=== PATIENT | female | born 1970 | race Caucasian/White ===

== ENCOUNTER 2016-10-28 03:42 | Inpatient (IN) | payer BC, MEDICARE ==
[2016-10-28] VITALS (16 sets, daily range): BP systolic 89–145; BP diastolic 55–73; PULSE 53–74; RESP 16–20; TEMP 97.7–98.5; O2SAT 92–100
[~2016-10-28] VITALS: Ht 167.6 cm; Wt 73.9 kg
[2016-10-28] MEDS ORDERED: HEPARIN SODIUM - IV 10,000 UNITS/10 ML VIAL ONE ×2 (03:48→04:59)
[2016-10-28] MEDS ORDERED: ASPIRIN 81 MG CHEW TAB ONE (03:48)
--- NOTE | 2016-10-28 03:57 | PD ---
HPI Chief Complaint: STEMI Alert Time Seen by Provider: 03:56 Travel History International Travel<30 days: No Contact w/Intl Traveler<30days: No Traveled to known affect area: No History of Present Illness HPI The patient is a 46 year old female who presents to the [facility] emergency department with a history of chest pain that awoke her from sound sleep at approximately 3 AM. The patient reports that she has never had a pain like this previously. She reports that the pain is a tightening sensation in the center of her chest. She reports that was worse with rolling on her left side and associated with left shoulder aching and numbness in bilateral upper extremities. The patient reports having associated diaphoresis and nausea with this. She denies having any vomiting. She reports that she's also had shortness of breath associated with the pain. She reports that it has been constant since onset. She reports that she took 2 baby aspirin prior to arrival. The patient was given 2 sublingual nitroglycerin prior to arrival by ambulance services. The patient the patient denies having any recent problems with acid reflux or heartburn. The patient was noted by ambulance services to have ST segment elevation in leads 2 and 3 and a cardiac alert was called prior to arrival. The patient agreed to this facility was noted to be bradycardic in the 50s, blood pressure systolic in the upper 80s. The patient denies having any prior history of diabetes, hypertension, or hyperlipidemia. She denies any prior history of heart disease. She denies having a primary care physician. The patient denies any recent history of fevers, cough, congestion, neck pain, abdominal pain, vomiting, diarrhea, urinary symptoms, or other neurologic symptoms. [facility] Past Medical History Narrative Medical The patient's past medical history is significant for epilepsy. Immunizations Current: Yes Seizures: Yes Tetanus Vaccination: Unknown Influenza Vaccination: No ?: Not Past Surgical History Narrative Surgical The patient's past surgical history is reportedly none. Surgical History: No Previous Surgery Social History Alcohol Use: Yes Tobacco Use: Yes Substance Use: No Allergies-Medications (Allergen,Severity, Reaction): Coded Allergies: No Known Allergies (Unverified , 10/28/16) Reported Meds & Prescriptions Reported Meds & Active Scripts Active No Active Prescriptions or Reported Medications Review of Systems Except as stated in HPI: all other systems reviewed are Neg General / Constitutional: No: Fever Eyes: No: Visual changes HENT: No: Headaches Cardiovascular: Positive: Chest Pain or Discomfort, Dyspnea on exertion Respiratory: Positive: Shortness of Breath Gastrointestinal: Positive: Nausea, No: Vomiting, Abdominal Pain, Indigestion , Loss of Appetite Genitourinary: No: Dysuria Musculoskeletal: No: Pain Skin: No Rash Neurologic: No: Weakness Psychiatric: No: Depression Endocrine: No: Polydipsia Hematologic/Lymphatic: No: Easy Bruising Physical Exam Narrative General: The patient is a well-developed well-nourished female, pale appearing on arrival , blood pressure systolic of 88, heart rate in the 40s. Head and Neck exam: Head is normocephalic atraumatic. Eyes: EOMI, pupils are equal round and reactive to light. Nose: Midline septum with pink mucous membranes Mouth: Dentition unremarkable. Moist mucus membranes. Posterior oropharynx is not erythematous. No tonsillar hypertrophy. Uvula midline. Airway patent. Neck: No palpable lymphadenopathy. No nuchal rigidity. No thyromegaly. Cardiovascular: Regular rate and rhythm without murmurs, gallops, or rubs. No pulse deficit to the extremities and simultaneous auscultation and palpation of her radial artery. Lungs: Clear to auscultation bilaterally. No wheezes, rhonchi, or rales. Abdomen: Soft, without tenderness to palpation in all 4 quadrants of the abdomen. No guarding, rebound, or rigidity. Normal bowel sounds are audible. No tenderness on palpation of McBurney's point. Negative Zheng's sign. Extremities: No clubbing, cyanosis, or edema. 2+ pulses in all 4 extremities. No calf tenderness on palpation. Back: No spinous process tenderness to palpation. No costovertebral angle tenderness to palpation. Neurologic Exam: Grossly nonfocal. Skin Exam: No rash noted. Intact skin that is warm and dry. Data Data Last Documented VS Vital Signs Date Time Temp Pulse Resp B/P Pulse Ox O2 Delivery O2 Flow Rate FiO2 10/28/16 04:34 53 20 145/73 96 Nasal Cannula 2 10/28/16 03:57 98.0 Orders Heparin Inj (Heparin Inj) (10/28/16 03:48) Aspirin Chew (Aspirin Chew) (10/28/16 03:48) Troponin I (10/28/16 03:54) Ckmb (Isoenzyme) Profile (10/28/16 03:54) Complete Blood Count With Diff (10/28/16 03:54) I-Stat Profile (10/28/16 03:54) I-Stat Creatinine (10/28/16 03:54) Calcium (10/28/16 03:54) Magnesium (Mg) (10/28/16 03:54) Prothrombin Time / Inr (Pt) (10/28/16 03:54) Act Partial Throm Time (Ptt) (10/28/16 03:54) B-Type Natriuretic Peptide (10/28/16 03:54) Chest, Single Ap (10/28/16 03:54) Electrocardiogram (10/28/16 03:54) Oxygen Administration (10/28/16 03:54) Iv Access Insert/Monitor (10/28/16 03:54) Oximetry (10/28/16 03:54) Ed Urine Pregnancytest Poc (10/28/16 04:09) Cta Thor Abd Aorta W Iv C W3d (10/28/16 04:09) Iohexol 350 Inj (Omnipaque 350 Inj) (10/28/16 04:18) Heparin-Ns/Pf Inj (Heparin-Ns/Pf Inj) (10/28/16 04:52) Midazolam Inj (Versed Inj) (10/28/16 04:53) Fentanyl Inj (Fentanyl Inj) (10/28/16 04:53) Heparin-Ns/Pf Inj (Heparin-Ns/Pf Inj) (10/28/16 04:55) Admit Order (Ed Use Only) (10/28/16 04:57) Verapamil Inj (Isoptin Inj) (10/28/16 04:59) Labs Laboratory Tests Test 10/28/16 03:55 White Blood Count 6.8 TH/MM3 Red Blood Count 2.79 MIL/MM3 Hemoglobin 8.8 GM/DL Bedside Hemoglobin 11.2 G/DL Hematocrit 26.5 % Bedside Hematocrit 33.0 % Mean Corpuscular Volume 95.2 FL Mean Corpuscular Hemoglobin 31.6 PG Mean Corpuscular Hemoglobin 33.2 % Concent Red Cell Distribution Width 13.9 % Platelet Count 141 TH/MM3 Mean Platelet Volume 8.6 FL Neutrophils (%) (Auto) 40.9 % Lymphocytes (%) (Auto) 46.6 % Monocytes (%) (Auto) 8.6 % Eosinophils (%) (Auto) 3.1 % Basophils (%) (Auto) 0.8 % Neutrophils # (Auto) 2.8 TH/MM3 Lymphocytes # (Auto) 3.1 TH/MM3 Monocytes # (Auto) 0.6 TH/MM3 Eosinophils # (Auto) 0.2 TH/MM3 Basophils # (Auto) 0.1 TH/MM3 CBC Comment DIFF FINAL Differential Comment Prothrombin Time 12.0 SEC Prothromb Time International 1.1 RATIO Ratio Activated Partial 24.0 SEC Thromboplast Time Bedside Sodium 144 MMOL/L Bedside Potassium 2.8 MMOL/L Bedside Chloride 107 MMOL/L Bedside Blood Urea Nitrogen 19 MG/DL Bedside Creatinine 0.8 MG/DL Bedside Glucose 114 MG/DL Calcium Level 7.1 MG/DL Magnesium Level 1.7 MG/DL Total Creatine Kinase 58 U/L Troponin I LESS THAN 0.02 NG/ML B-Type Natriuretic Peptide 8 PG/ML MDM Medical Decision Making Medical Screen Exam Complete: Yes Emergency Medical Condition: Yes Medical Record Reviewed: Yes Interpretation(s) Last Impressions Aorta CTA 10/28/16 0409 Signed Impressions: Service Date/Time: Friday, October 28, 2016 04:09 - CONCLUSION: 1. Mild atherosclerotic disease. 2. No evidence for aortic dissection. 3. Right adrenal nodule likely an adenoma. Usman Yoo MD Chest X-Ray 10/28/16 0354 Signed Impressions: Service Date/Time: Friday, October 28, 2016 04:09 - CONCLUSION: No acute disease. Usman Yoo MD Differential Diagnosis STEMI, versus non-STEMI, versus acid reflux, versus aortic dissection, versus pulmonary embolism, versus peptic ulcer disease Narrative Course During the course of the patients emergency department visit, the patients history, examination, and differential diagnosis were reviewed with the patient. The patient had IV access obtained and blood work sent for analysis. The patient was placed on a director cardiac with oximetry and blood pressure monitoring. A STEMI alert was called after the patient's EKG revealed ST segment elevation in leads 2 and 3. The patient was provided aspirin 162 mg by mouth 1. She reports that she took 162 mg prior to arrival. Nitroglycerin was held as the patient's initial blood pressure was in the 80s systolic. The patient was started on normal saline 1 L wide open. At 03:[address] Beebe regarding this patient's case. He plans to review the patient's EKG and call back for us to discuss this further. I spoke to him again regarding this patient's case and as the ST elevation is subtle, he recommends that a CTA of the chest be done first. Therefore, heparin was also held due to the concern of possible dissection. The patient's blood pressure began to improve with a liter of normal saline wide open to a systolic in the low 100s. On repeat examination, the patient reports that her pain was a 7 out of 10 in severity and is now at 3 out of 10 in severity. The patient's blood pressure on repeat evaluation is 145 systolic. The patient was given a sublingual nitroglycerin. I called the radiologist on-call regarding the patient's CT results. He reported that he will immediately read them and dictate them. Unfortunately, prior to the official dictation being transcribed and read by me, the cardiac microbiology laboratory manager called for the patient. Dr. Beebe arrived and accepted the patient to the Client Account Manager. The patient was transported to the catheter lab prior to heparin being able to be administered. The CTA was read as negative by the reading radiologist. Radiology studies were reviewed and remarkable for a chest x-ray that shows no acute abnormality. The patients results were discussed with the patient, including the plan of care. I explained that further testing and/ or monitoring is indicated based on the patients history, examination, and/ or laboratory findings. Therefore, I recommended admission for additional evaluation. The patient expressed understanding and was agreeable with this plan. The patient was admitted to the hospital in critical condition and sent to a bed under the care of the machine ii engraver. Physician Communication Physician Communication The patient's case was discussed with Dr. Beebe, the machine ii engraver on-call. He did take the patient to the cardiac catheterization lab. Diagnosis Primary Impression: STEMI (ST elevation myocardial infarction) Qualified Code: I21.3 - ST elevation myocardial infarction (STEMI), unspecified artery Admitting Information Admitting Physician Requests: Admit Scripts No Active Prescriptions or Reported Meds Latha Altamirano MD Oct 28, 2016 03:57
[2016-10-28 04:05] LABS: I-STAT POTASSIUM 2.8 MMOL/L (3.5-4.9); I-STAT SODIUM 144 MMOL/L (138-146)
[2016-10-28 04:07] LABS: AUTOMATED NEUTROPHIL # 2.8 TH/MM3 (1.8-7.7); BASOPHIL # 0.1 TH/MM3 (0-0.2); BASOPHIL % 0.8 % (0.0-2.0); EOSINOPHIL # 0.2 TH/MM3 (0-0.4); EOSINOPHIL % 3.1 % (0.0-4.0); HEMATOCRIT 26.5 % (35.0-46.0); HEMO FLAGS DIFF FINAL; LYMPH % 46.6 % (9.0-44.0); LYMPHOCYTE # 3.1 TH/MM3 (1.0-4.8); MEAN CELL VOLUME 95.2 FL (80.0-100.0); MEAN CORPUSCULAR HEMOGLOBIN 31.6 PG (27.0-34.0); MEAN CORPUSCULAR HGB CONC 33.2 % (32.0-36.0); MONO % 8.6 % (0.0-8.0); NEUT % 40.9 % (16.0-70.0); PLATELET COUNT 141 TH/MM3 (150-450); RED BLOOD COUNT 2.79 MIL/MM3 (4.00-5.30); RED CELL DISTRIBUTION WIDTH 13.9 % (11.6-17.2); WHITE BLOOD COUNT 6.8 TH/MM3 (4.0-11.0)
[2016-10-28] MEDS ORDERED: IOHEXOL 350 MG/ML 10 ML VIAL (for RAD DIAG) IV ONE (04:18)
[2016-10-28 04:20] LABS: INTERNATIONAL NORMALIZED RATIO 1.1 RATIO
[2016-10-28 04:38] LABS: MAGNESIUM 1.7 MG/DL (1.5-2.5)
[2016-10-28 04:39] LABS: CREATINE KINASE 58 U/L (26-192)
--- NOTE | 2016-10-28 04:39 | RADRPT ---
EXAM DATE/TIME: 10/28/2016 04:09 [facility] COMPARISON: CHEST SINGLE AP, October 28, 2016, 4:09. INDICATIONS : Chest pain. Evaluate for dissection. IV CONTRAST: 100 cc Omnipaque 350 (iohexol) IV RADIATION DOSE: 6.07 CTDIvol (mGy) MEDICAL HISTORY : Seizures. SURGICAL HISTORY : None. ENCOUNTER: Initial ACUITY: 1 day PAIN SCALE: 8/10 LOCATION: chest TECHNIQUE: Volumetric scanning was performed using a multi-row detector CT scanner. The data was post processed with a variety of visualization algorithms including full volume maximum intensity projection, multi -planar sliding thin slab reformation, curved planar reformation, and surface rendering techniques. Using automated exposure control and adjustment of the mA and/or kV according to patient size, radiat ion dose was kept as low as reasonably achievable to obtain optimal diagnostic quality images. FINDINGS: LUNGS: There is no consolidation or pneumothorax. No concerning pulmonary nodule is visualized. No pleural fluid is present. Mild dependent atelectatic changes are seen. MEDIASTINUM: No abnormally enlarged lymph nodes by CT criteria. No axillary or hilar abnormalities are identified. ABDOMEN: The liver and spleen are free of focal defects. The gallbladder and pancreas demonstrate no abnormali ty. A 3.2 cm hypodense nodule the right adrenal gland is noted likely an adenoma. The kidneys demonst rate no evidence of solid renal mass or hydronephrosis. No free fluid or abdominal masses are identif ied. No para-aortic adenopathy is seen. PELVIS: No evidence of free fluid or pelvic mass. No abnormally enlarged inguinal or retroperitoneal lymph no janay are present. The bladder is unremarkable. THORACIC AORTA: The thoracic aortic root is normal with bovine branching of the great vessels. There is no evidence of aneurysm or dissection. ABDOMINAL AORTA: The aorta is without aneurysm or dissection. On axial image 172 there is slight focal ectasia of the infrarenal abdominal aorta measuring up to 2.2 cm in transverse dimension. Atherosclerotic plaquing is seen throughout the aorta and iliac vasculature with mild luminal narrowing of the left common maycol ac artery seen best on axial image 180. The renal arteries are patent bilaterally. The proximal lyla ac and superior mesenteric arteries are patent and normal in diameter. PELVIC VESSELS: The internal iliac and external iliac vessels are patent without aneurysm or stenosis. CONCLUSION: 1. Mild atherosclerotic disease. 2. No evidence for aortic dissection. 3. Right adrenal nodule likely an adenoma. Usman Yoo MD on October 28, 2016 at 4:33 Board Certified Radiologist. This report was verified electronically.
--- NOTE | 2016-10-28 04:39 | RADRPT ---
EXAM DATE/TIME: 10/28/2016 04:09 [facility] COMPARISON: No previous studies available for comparison. INDICATIONS : Stroke Alert. MEDICAL HISTORY : Asthma SURGICAL HISTORY : None. ENCOUNTER: Initial ACUITY: 1 day PAIN SCORE: 0/10 LOCATION: Bilateral chest FINDINGS: A single view of the chest demonstrates the lungs to be symmetrically aerated without evidence of mas s, infiltrate or effusion. The cardiomediastinal contours are unremarkable. Osseous structures are intact. CONCLUSION: No acute disease. Usman Yoo MD on October 28, 2016 at 4:38 Board Certified Radiologist. This report was verified electronically.
[2016-10-28] MEDS ORDERED: HEPARIN-NS/PF INJ 500 ML ONE ×2 (04:52→04:55)
[2016-10-28] MEDS ORDERED: MIDAZOLAM HCL 2 MG/2 ML VIAL ONE (04:53)
[2016-10-28] MEDS ORDERED: VERAPAMIL HCL 5 MG/2 ML VIAL ONE (04:59)
[2016-10-28] MEDS ORDERED: POTASSIUM CHLOR 10 MEQ PREMIX 100 ML ONE (05:11)
[2016-10-28] MEDS ORDERED: CLOPIDOGREL 300 MG TAB ONE (05:47)
[2016-10-28] MEDS ORDERED: IOHEXOL 350 MG/ML 100 ML BTL (for Cath Lab) OTHER ONE (06:00)
[2016-10-28] MEDS ORDERED: CLOPIDOGREL 300 MG TAB PO ONE (06:15)
[2016-10-28] MEDS ORDERED: MISC INFORMATION XX ONE (06:15)
[2016-10-28] MEDS ORDERED: ATROPINE SULFATE 1 MG/ML VIAL IV PRN (06:15)
[2016-10-28] MEDS ORDERED: ONDANSETRON HCL 4 MG/2 ML VIAL IV PRN (06:15)
[2016-10-28] MEDS ORDERED: SODIUM CHLORIDE 0.9% FLUSH 5 ML FLUSH IVF PRN ×2 (06:15)
--- NOTE | 2016-10-28 06:25 | MB ---
cc: JOVANA BASILIO DATE OF 1970 DATE OF CONSULTATION October 28, 2016 REASON FOR CONSULTATION Chest pain. HISTORY OF PRESENT ILLNESS 46-year-old female smoker who presented to the emergency department with sudden onset of chest pain this morning. She reports that she was sleeping when all of a sudden she had an acute onset of substernal chest discomfort that woke her from sleep. She went to the bathroom and noticed also bilateral arm numbness. The patient called in EMS for help and was brought to the emergency department for further evaluation. Upon arrival EKG showed some sinus bradycardia with nonspecific ST changes, mild less than 0.5 mm elevations in lead II and III without any reciprocal changes. The emergency department physician felt that this was a STEMI for which she called alert. The patient was given nitroglycerin and aspirin in the emergency department. Currently she reports her chest pain is better. She denies fevers, chills, nausea, vomiting, diarrhea. She denies also any bleeding issues such as hematuria, hematochezia, melena. She was found to have a low potassium with a potassium of 2.8 and the first troponin has been negative. REVIEW OF SYSTEMS Negative except for what is mentioned in the HPI. PAST MEDICAL HISTORY She is an active smoker. SOCIAL HISTORY She drinks alcohol socially. No illicit drug use and she smokes actively. PAST SURGICAL HISTORY None. HOME MEDICATIONS None. FAMILY HISTORY Unremarkable. PHYSICAL EXAMINATION Vital Signs: Temperature 97, respiratory rate 20, heart rate 78, blood pressure 145/68. O2 sat 100% on 2 liters nasal cannula. HEENT: She is alert, awake, oriented x 3, in no acute distress. NECK: No JVD, no carotid bruits. HEART: Regular rate and rhythm. No murmurs, rubs or gallops. LUNGS: Clear to auscultation bilaterally. No wheezes, no rhonchi, no rales. ABDOMEN: Obese, soft, nontender, nondistended with positive bowel sounds. EXTREMITIES: No cyanosis or edema. LABORATORY DATA Hemoglobin 11, hematocrit 33, platelet count 141. INR 1.1. Sodium 144, potassium 2.8, BUN 19, creatinine 0.8. Troponin less than 0.2. BNP of 8. CHEST X-RAY Unremarkable. CTA No evidence of dissection. ASSESSMENT AND PLAN A 46-year-old female with cardiac risk factors that include smoking and obesity , presenting with chest pain and EKG showing inferior STEMI. CTA unremarkable for dissection. Given the patient's ongoing symptoms and EKG, immediate PCI is recommended per ACC/AHA guidelines for immediate reperfusion. Risks and benefits of left heart cath/intervention including but not limited to neurovascular trauma, acute kidney injury, bleeding, infection, stroke, SD, emergent bypass surgery and have been explained to the patient. The patient understands risks and is willing to proceed. Thank you for the opportunity to take part in the care of this patient. Further therapy to be determined. Jovana Basilio MD HEALTHCARE SALES REPRESENTATIVE/SSB /4:58 AM /6:15 AM MTDD
--- NOTE | 2016-10-28 06:37 | MA ---
cc: JOVANA BASILIO DATE OF 1970 DATE OF PROCEDURE October 28, 2016 PROCEDURE PERFORMED 1. Left heart catheterization. 2. Selective right and left coronary angiography. 3. Left ventricular pressure recordings. 4. Right common femoral artery angiography. INDICATION ST-elevation SC. PROCEDURE DESCRIPTION Consents signed. The patient was taken emergently to the Carpet Cleaner. The right groin was prepped and draped in sterile fashion. Using 1% lidocaine for local anesthesia and a micropuncture kit, a 6-Citizen [place] sheath was inserted into the right common femoral artery. Right common femoral artery angiography was performed to confirm position of the sheath. The JR-4 diagnostic catheter was introduced into the left ventricle over a wire followed by pressure recordings and pullback. Then selective right and left coronary angiography was performed with a JL-4 and JR-4 diagnostic catheters. Angiography was taken in multiple views. We identified a 100% occlusion in the OM-3 which was ADILIA-0 flow as a culprit of the STEMI. Patient has a left dominant system. Thus we prepared to percutaneously intervene. Heparin was given for IV anticoagulation. The left main was engaged with an EBU 3.5. The left circumflex vessel was wired with a BMW wire which was anchored distally in the OM-3, followed by pre-dilation with a 2.0 x 15mm balloon, followed by insertion and deployment of 2.5 x 22mm drug-eluting stent which was inflated to high atmospheres. Final angiographic views revealed good stent apposition and expansion with ADILIA-3 flow, no residual post-stenosis. The patient tolerated the procedure well without complications. ESTIMATED BLOOD LOSS 50 cc. TOTAL CONTRAST USED 100 cc. CLOSURE The right groin access site was closed with a Perclose device. RESULTS LEFT VENTRICLE The left ventricular pressure was 125/15 with an LVEDP of 23. The aortic pressure was 99/56 with a mean of 74. There was no gradient upon pullback from the left ventricle to the aorta. ANGIOGRAPHY 1. LEFT MAIN: Short with no significant disease. 2. LAD is a transapical vessel. It has minimal luminal irregularities throughout. Has a distal 30% lesion. It is mildly calcified. Diagonals are patent with nonobstructive CAD 3. Left circumflex artery is a dominant vessel giving off the blood flow to the PDA. The OM1 is patent with minimal luminal irregularities. The OM2 has a 70% lesion proximally. This lesion is a long lesion. The OM3 is 100% occluded. 4. The right coronary artery is a nondominant vessel; it is small. It has minimal luminal irregularities throughout. It has a 40% lesion proximally. CONCLUSION 1. Inferior STEMI status post successful PCI/RUBA to OM3. 2. Coronary artery disease with a significant lesion in OM2 of about 70%. 3. Elevated LVEDP. RECOMMENDATIONS 1. Continue dual antiplatelet agent with aspirin and Plavix. 2. Start JEFF inhibitors and statins as tolerated. 3. Beta Blockers on hold given bradycardia 3. Smoking cessation. 4. Encourage early ambulation and incentive spirometry. MD MARIA G Byrne/SSB /6:03 AM /6:26 AM JOAQUIN
[2016-10-28] MEDS ORDERED: CHLORHEXIDINE GLUCONATE 2 % 1 PACK (2 CLOTHS)(extra cloths) TOP PRN (06:45)
[2016-10-28] MEDS: RAMIPRIL 2.5 MG CAP PO SCH (09:00)
[2016-10-28] MEDS ORDERED: SODIUM CHLORIDE 0.9% FLUSH 5 ML FLUSH IVF SCH (09:00)
[2016-10-28] MEDS: ASPIRIN 81 MG CHEW TAB PO SCH (09:00)
[2016-10-28] MEDS: SODIUM CHLORIDE 0.9% FLUSH 5 ML FLUSH IVF SCH ×2 (09:01→21:42)
--- NOTE | 2016-10-28 09:56 | PD.CONS ---
HPI Service [facility] Consult Requested By Supervisor Glycerin Reason for Consult medical management and transfer of care in AM Primary Care Physician No Primary Care Physician Diagnoses: History of Present Illness This is a 46-year-old female with no past medical history but long-term tobacco use who presented with chest pain. Patient in the emergency department was found to have a inferior STEMI so a STEMI alert protocol was follow. Patient had a cardiac catheterization and which she had OMS stented. [facility] consulted for medical management and transfer of care in AM. Patient has no complaints. She stated that she is doing well. Denies any chest pain, SOB, palpitation. She stated that she is not able to move until 2 PM due to recent cardiac catheterization. Multiple family members at the bedside. Patient smokes about half pack per day for the past 20 years. Her father had cardiac bypass at age of 62. Also multiple family members have cardiovascular disease and diabetes. Review of Systems Constitutional: DENIES: Diaphoretic episodes, Fatigue, Fever, Weight gain, Weight loss, Chills, Dizziness, Change in appetite, Night Sweats Endocrine: DENIES: Abnorml menstrual pattern, Heat/cold intolerance, Polydipsia , Polyuria, Polyphagia Eyes: DENIES: Blurred vision, Diplopia, Eye inflammation, Eye pain, Vision loss , Photosensitivity, Double Vision Ears, nose, mouth, throat: DENIES: Tinnitus, Hearing loss, Vertigo, Nasal discharge, Oral lesions, Throat pain, Hoarseness, Ear Pain, Running Nose, Epistaxis, Sinus Pain, Toothache, Odynophagia Respiratory: DENIES: Apneas, Cough, Snoring, Wheezing, Hemoptysis, Sputum production, Shortness of breath Cardiovascular: DENIES: Chest pain, Palpitations, Syncope, Dyspnea on Exertion , PND, Lower Extremity Edema, Orthopnea, Claudication Gastrointestinal: DENIES: Abdominal pain, Black stools, Bloody stools, Constipation, Diarrhea, Nausea, Vomiting, Difficulty Swallowing, Anorexia Genitourinary: DENIES: Abnormal vaginal bleeding, Dysmenorrhea, Dyspareunia, Sexual dysfunction, Urinary frequency, Urinary incontinence, Urgency, Hematuria , Dysuria, Nocturia, Vaginal discharge Musculoskeletal: DENIES: Joint pain, Muscle aches, Stiffness, Joint Swelling, Back pain, Neck pain Integumentary: DENIES: Abnormal pigmentation, Pruritus, Rash, Nail changes, Breast masses, Breast skin changes, Nipple discharge Hematologic/lymphatic: DENIES: Bruising, Lymphadenopathy Immunologic/allergic: DENIES: Eczema, Urticaria Neurologic: DENIES: Abnormal gait, Headache, Localized weakness, Paresthesias, Seizures, Speech Problems, Tremor, Poor Balance Psychiatric: DENIES: Anxiety, Confusion, Mood changes, Depression, Hallucinations, Agitation, Suicidal Ideation, Homicidal Ideation, Delusions Past Family Social History Allergies: Coded Allergies: No Known Allergies (Unverified , 10/28/16) Past Medical History NONE prior to admission but now CAD/STEMI. Tobacco dependence. Past Surgical History . Reported Medications No Active Prescriptions or Reported Medications Active Ordered Medications Current Medications Heparin Sodium (Porcine) (Heparin Inj) 10,000 units STK-MED ONCE .ROUTE ; Start 10/28/16 at 03:48; Stop 10/28/16 at 03:49; Status DC Aspirin (Aspirin Chew) 162 mg STK-MED ONCE .ROUTE ; Start 10/28/16 at 03:48; Stop 10/28/16 at 03:49; Status DC Iohexol 100 ml 100 ml STK-MED ONCE IV Last administered on 10/28/16 04:18; Start 10/28/16 at 04:18; Stop 10/28/16 at 04:19; Status DC Heparin Sodium/ Sodium Chloride (Heparin-NS/Pf Inj) 500 ml @ As Directed STK- MED ONCE .ROUTE ; Start 10/28/16 at 04:52; Stop 10/28/16 at 04:53; Status DC Midazolam HCl (Versed Inj) 2 mg STK-MED ONCE .ROUTE Last administered on 05:24; Start 10/28/16 at 04:53; Stop 10/28/16 at 04:54; Status DC Fentanyl Citrate 100 mcg 100 mcg STK-MED ONCE .ROUTE Last administered on 05:04; Start 10/28/16 at 04:53; Stop 10/28/16 at 04:54; Status DC Heparin Sodium/ Sodium Chloride (Heparin-NS/Pf Inj) 500 ml @ As Directed STK- MED ONCE .ROUTE ; Start 10/28/16 at 04:55; Stop 10/28/16 at 04:56; Status DC Verapamil HCl (Isoptin Inj) 5 mg STK-MED ONCE .ROUTE ; Start 10/28/16 at 04:59; Stop 10/28/16 at 05:00; Status DC Heparin Sodium (Porcine) 95390 units 10,000 units STK-MED ONCE .ROUTE Last administered on 10/28/16 05:24; Start 10/28/16 at 04:59; Stop 10/28/16 at 05:00 ; Status DC Potassium Chloride (KCl 10 Meq Premix Inj) 100 ml @ As Directed STK-MED ONCE .ROUTE Last administered on 10/28/16 05:26; Start 10/28/16 at 05:11; Stop at 05:12; Status DC Clopidogrel Bisulfate (Plavix) 600 mg STK-MED ONCE .ROUTE ; Start 10/28/16 at 05 :47; Stop 10/28/16 at 05:48; Status DC IV Flush (NS Flush) 2 ml UNSCH PRN IVF FLUSH AFTER USING IV ACCESS; Start 10/28 at 06:15; Stop 10/28/16 at 06:27; Status DC IV Flush (NS Flush) 2 ml BID IVF ; Start 10/28/16 at 09:00; Stop 10/28/16 at 09: 00; Status DC Aspirin (Aspirin Chew) 81 mg DAILY PO Last administered on 10/28/16 09:00; Start 10/28/16 at 09:00 Clopidogrel Bisulfate (Plavix) 600 mg ONCE ONCE PO ; Start 10/28/16 at 06:15; Stop 10/28/16 at 06:26; Status DC Clopidogrel Bisulfate (Plavix) 75 mg DAILY PO ; Start 10/29/16 at 09:00 Miscellaneous Information 1 ONCE ONCE XX ; Start 10/28/16 at 06:15; Stop at 06:28; Status DC Atropine Sulfate (Atropine Inj) 0.5 mg UNSCH PRN IV VAGAL REPONSE; Start at 06:15 Ondansetron HCl (Zofran Inj) 4 mg Q4H PRN IV NAUSEA; Start 10/28/16 at 06:15 Ramipril (Altace) 2.5 mg DAILY PO Last administered on 10/28/16 09:00; Start 10/28/16 at 09:00 Atorvastatin Calcium (Lipitor) 10 mg HS PO ; Start 10/28/16 at 21:00 IV Flush (NS Flush) 2 ml BID IVF Last administered on 10/28/16t 09:01; Start at 09:00 IV Flush (NS Flush) 2 ml UNSCH PRN IVF FLUSH AFTER USING IV ACCESS; Start 10/28 at 06:15 Miscellaneous Information Patient in critical care unit? Ass... Q361D XX ; Start 10/28/16 at 06:45 Chlorhexidine Gluconate (Chlorhexidine 2% Cloth) 3 pack DAILY@04 TOP ; Start at 04:00; Stop 11/02/16 at 04:01 Chlorhexidine Gluconate (Chlorhexidine 2% Cloth) 3 pack UNSCH PRN TOP HYGIENIC CARE; Start 10/28/16 at 06:45; Stop 11/02/16 at 06:40 Iohexol (OMNIPAQUE 350 INJ (Technical Publications Writer)) 100 ml STK-MED ONCE OTHER ; Start at 06:00; Stop 10/28/16 at 09:44; Status DC Family History Father has history of cardiac vascular disease with cardiac bypass the age of 62. He also has diabetes. Mother has diabetes and cardiovascular disease. Social History Patient lives in [place]. Denies any alcohol, illicit drug use. Positive tobacco use. Physical Exam Vital Signs Vital Signs Date Time Temp Pulse Resp B/P Pulse Ox O2 Delivery O2 Flow Rate FiO2 10/28/16 07:35 100 Nasal Cannula 3.00 10/28/16 06:18 97.7 54 20 127/72 98 10/28/16 04:34 53 20 145/73 96 Nasal Cannula 2 10/28/16 03:57 98.0 62 20 90/55 96 Nasal Cannula 2 10/28/16 03:56 20 10/28/16 03:56 96 Nasal Cannula 2 10/28/16 03:54 92 Nasal Cannula 3.00 10/28/16 03:54 92 3.00 10/28/16 03:48 98.0 59 20 89/58 97 Physical Exam GENERAL: This is a well-nourished, well-developed patient, in no apparent distress. SKIN: No rashes, ecchymoses or lesions. Cool and dry. Right groin area with pressure dressing in place. No swelling or ecchymosis noted. HEAD: Atraumatic. Normocephalic. No temporal or scalp tenderness. EYES: Pupils equal round and reactive. Extraocular motions intact. No scleral icterus. No injection or drainage. ENT: Nose without bleeding, purulent drainage or septal hematoma. Throat without erythema, tonsillar hypertrophy or exudate. Uvula midline. Airway patent. NECK: Trachea midline. No JVD or lymphadenopathy. Supple, nontender, no meningeal signs. CARDIOVASCULAR: Regular rate and rhythm without murmurs, gallops, or rubs. RESPIRATORY: Clear to auscultation. Breath sounds equal bilaterally. No wheezes , rales, or rhonchi. GASTROINTESTINAL: Abdomen soft, non-tender, nondistended. No hepato-splenomegaly , or palpable masses. No guarding. MUSCULOSKELETAL: Extremities without clubbing, cyanosis, or edema. No joint tenderness, effusion, or edema noted. No calf tenderness. Negative Homans sign bilaterally. NEUROLOGICAL: Awake and alert. Cranial nerves II through XII intact. Motor and sensory grossly within normal limits. Five out of 5 muscle strength in all muscle groups. Normal speech. Laboratory Laboratory Tests Test 10/28/16 03:55 White Blood Count 6.8 Red Blood Count 2.79 Hemoglobin 8.8 Bedside Hemoglobin 11.2 Hematocrit 26.5 Bedside Hematocrit 33.0 Mean Corpuscular Volume 95.2 Mean Corpuscular Hemoglobin 31.6 Mean Corpuscular Hemoglobin 33.2 Concent Red Cell Distribution Width 13.9 Platelet Count 141 Mean Platelet Volume 8.6 Neutrophils (%) (Auto) 40.9 Lymphocytes (%) (Auto) 46.6 Monocytes (%) (Auto) 8.6 Eosinophils (%) (Auto) 3.1 Basophils (%) (Auto) 0.8 Neutrophils # (Auto) 2.8 Lymphocytes # (Auto) 3.1 Monocytes # (Auto) 0.6 Eosinophils # (Auto) 0.2 Basophils # (Auto) 0.1 CBC Comment DIFF FINAL Differential Comment Prothrombin Time 12.0 Prothromb Time International 1.1 Ratio Activated Partial 24.0 Thromboplast Time Bedside Sodium 144 Bedside Potassium 2.8 Bedside Chloride 107 Bedside Blood Urea Nitrogen 19 Bedside Creatinine 0.8 Bedside Glucose 114 Calcium Level 7.1 Magnesium Level 1.7 Total Creatine Kinase 58 Troponin I LESS THAN 0.02 B-Type Natriuretic Peptide 8 Result Diagram: 10/28/16 0355 Imaging Last Impressions Aorta CTA 10/28/16 0409 Signed Impressions: Service Date/Time: Friday, October 28, 2016 04:09 - CONCLUSION: 1. Mild atherosclerotic disease. 2. No evidence for aortic dissection. 3. Right adrenal nodule likely an adenoma. Usman Yoo MD Chest X-Ray 10/28/16 0354 Signed Impressions: Service Date/Time: Friday, October 28, 2016 04:09 - CONCLUSION: No acute disease. Usman Yoo MD Assessment and Plan Assessment and Plan Inferior STEMI -Status post cardiac catheterization with stent placement and OMS. -At the moment patient is chest pain-free and stable. Continue with ramipril, metoprolol, aspirin, Plavix, and atorvastatin. -Being managed by platform worker. Tobacco dependence -Smoking cessation. DVT prophylaxis -s/p heparin Code Status full Discussed Condition With Patient currently in IMC due to no beds being available. D/W patient nurse and told him when that is available can transfer to CICU with telemetry. Once cleared by platform worker patient can be discharged to home. Danielle Larson MD Oct 28, 2016 09:56
--- NOTE | 2016-10-28 14:26 | EKG ---
Date Performed: 10/28/2016 Time Performed: 03:44:56 PTAGE: 46 years EKG: SINUS BRADYCARDIA POSSIBLE LEFT ATRIAL ENLARGEMENT NONSPECIFIC ST ELEVATION BORDERLINE ECG NO PREVIOUS TRACING DOCTOR: Mark Flaherty Interpretating Date/Time 10/28/2016 14:25:31
--- NOTE | 2016-10-28 15:51 | EC ---
Study Study Date:10/28/2016 STUDY CONCLUSIONS SUMMARY LEFT VENTRICLE: The cavity size was normal. Wall thickness was normal. Systolic function was normal. The estimated ejection fraction was in the range of 55% to 60%. Wall motion was normal; there were no regional wall motion abnormalities. If LV function is below 40, please consider prescribing an ACEI or ARB or document rationale for non-use. PROCEDURE DATA STUDY STATUS: Elective. Procedure: Transthoracic echocardiography. Image quality was good. Scanning was performed from the parasternal, apical, and subcostal acoustic windows. Study completion: The patient tolerated the procedure well. Transthoracic echocardiography. M-mode, complete 2D, complete spectral Doppler, and color Doppler. Patient status: Inpatient. CARDIAC ANATOMY LEFT VENTRICLE: The cavity size was normal. Wall thickness was normal. Systolic function was normal. The estimated ejection fraction was in the range of 55% to 60%. Wall motion was normal; there were no regional wall motion abnormalities. AORTIC VALVE: Trileaflet; normal thickness leaflets. Doppler: Transvalvular velocity was within the normal range. There was no stenosis. No regurgitation. AORTA: Aortic root: The aortic root was normal in size. MITRAL VALVE: Structurally normal valve. Doppler: Transvalvular velocity was within the normal range. There was no evidence for stenosis. Trace to mild regurgitation. LEFT ATRIUM: The atrium was normal in size. RIGHT VENTRICLE: The cavity size was normal. Wall thickness was normal. PULMONIC VALVE: Doppler: Transvalvular velocity was within the normal range. There was no evidence for stenosis. No regurgitation. TRICUSPID VALVE: Structurally normal valve. Doppler: Transvalvular velocity was within the normal range. No regurgitation. PULMONARY ARTERY: The main pulmonary artery was normal-sized. Systolic pressure was within the normal range. RIGHT ATRIUM: The atrium was normal in size. PERICARDIUM: There was no pericardial effusion. SYSTEMIC VEINS: Inferior vena cava: The vessel was normal in size. BASIC MEASUREMENTS ADULT NORMAL Left ventricle LV internal dimension, ED, chordal level, 46.5 mm 43-52 PLAX LV internal dimension, ES, chordal level, 31.2 mm 23-38 PLAX Fractional shortening, chordal level, PLAX 33 % >29 LV posterior wall thickness, ED 12.3 mm IVS/LVPW ratio, ED 0.74 <1.3 Ventricular septum Septal thickness, ED 9.16 mm Aortic valve Leaflet separation 18 mm 15-26 Right ventricle RV internal dimension, ED, PLAX 21.6 mm 19-38 BASIC MEASUREMENTS ADULT NORMAL Aortic valve Leaflet separation 18 mm 15-26 Aorta Root diameter, ED 26 mm 20-37 Left atrium Anterior-posterior dimension, ES 33 mm 19-40 LA/aortic root ratio 1.27 LEGEND: Mean values are shown as u=mean value. Asterisk (*) price values outside specified normal range. Prepared and signed by Jorge Giordano [id number]
[2016-10-28] MEDS ORDERED: ATORVASTATIN 10 MG TAB PO SCH (21:00)
[2016-10-28] MEDS: ACETAMINOPHEN 325 MG TAB PO PRN (21:41)
[2016-10-29] VITALS: BP 104/58; PULSE 63; RESP 22; TEMP 98.2; O2SAT 98
[2016-10-29 02:00] VITALS: PULSE 62
[2016-10-29 04:00] VITALS: BP 132/69; PULSE 72; PULSE 73; RESP 20; TEMP 98.4; O2SAT 99
[2016-10-29] MEDS ORDERED: CHLORHEXIDINE GLUCONATE 2 % 1 PACK (2 CLOTHS)(taper/protocol) TOP SCH (04:00)
[2016-10-29 04:27] LABS: AUTOMATED NEUTROPHIL # 2.9 TH/MM3 (1.8-7.7); BASOPHIL % 0.8 % (0.0-2.0); EOSINOPHIL # 0.2 TH/MM3 (0-0.4); EOSINOPHIL % 2.7 % (0.0-4.0); HEMATOCRIT 39.1 % (35.0-46.0); HEMO FLAGS DIFF FINAL; LYMPH % 36.8 % (9.0-44.0); LYMPHOCYTE # 2.1 TH/MM3 (1.0-4.8); MEAN CORPUSCULAR HEMOGLOBIN 31.7 PG (27.0-34.0); MEAN CORPUSCULAR HGB CONC 33.3 % (32.0-36.0); MONO % 7.5 % (0.0-8.0); NEUT % 52.2 % (16.0-70.0); PLATELET COUNT 129 TH/MM3 (150-450); RED BLOOD COUNT 4.11 MIL/MM3 (4.00-5.30); RED CELL DISTRIBUTION WIDTH 14.2 % (11.6-17.2); WHITE BLOOD COUNT 5.6 TH/MM3 (4.0-11.0)
[2016-10-29 04:28] LABS: BICARBONATE 19.1 MEQ/L (21.0-32.0); POTASSIUM 4.6 MEQ/L (3.5-5.1)
[2016-10-29] MEDS: ACETAMINOPHEN 325 MG TAB PO PRN (05:39)
[2016-10-29 06:00] VITALS: PULSE 64
[2016-10-29] MEDS: SODIUM CHLORIDE 0.9% FLUSH 5 ML FLUSH IVF SCH (07:53)
[2016-10-29] MEDS: RAMIPRIL 2.5 MG CAP PO SCH (07:53)
[2016-10-29] MEDS: ASPIRIN 81 MG CHEW TAB PO SCH (07:53)
[2016-10-29 08:00] VITALS: BP 117/70; PULSE 67; PULSE 81; RESP 18; TEMP 98.6; O2SAT 100
[2016-10-29] MEDS ORDERED: CLOPIDOGREL 75 MG TAB PO SCH (09:00)
--- NOTE | 2016-10-29 09:19 | PD.CARD.PN ---
Subjective Subjective Remarks no overnight events no complaints chest pain free Objective Medications Current Medications Medications (Trade) Dose Ordered Sig/Micheal Route Start Time Stop Time Status Last Admin (Aspirin Chew) 81 mg DAILY PO 10/28/16 09:00 10/29/16 07:53 (Plavix) 75 mg DAILY PO 10/29/16 09:00 10/29/16 07:53 (Atropine Inj) 0.5 mg UNSCH PRN IV 10/28/16 06:15 (Zofran Inj) 4 mg Q4H PRN IV 10/28/16 06:15 (Altace) 2.5 mg DAILY PO 10/28/16 09:00 10/29/16 07:53 (Lipitor) 10 mg HS PO 10/28/16 21:00 10/28/16 21:42 (NS Flush) 2 ml BID IVF 10/28/16 09:00 10/29/16 07:53 (NS Flush) 2 ml UNSCH PRN IVF 10/28/16 06:15 Miscellaneous Information Patient in critical care unit? Ass... Q361D XX 10/28/16 06:45 (Chlorhexidine 2% Cloth) 3 pack DAILY@04 TOP 10/29/16 04:00 11/02/16 04:01 10/29/16 04:00 (Chlorhexidine 2% Cloth) 3 pack UNSCH PRN TOP 10/28/16 06:45 11/02/16 06:40 (Tylenol) 650 mg Q4H PRN PO 10/28/16 21:30 10/29/16 05:39 Vital Signs / I&O Vital Signs Date Time Temp Pulse Resp B/P Pulse Ox O2 Delivery O2 Flow Rate FiO2 10/29/16 08:00 81 10/29/16 06:39 20 10/29/16 06:00 64 10/29/16 04:00 73 10/29/16 04:00 98.4 72 20 132/69 99 10/29/16 02:00 62 10/29/16 00:00 63 10/29/16 00:00 98.2 63 22 104/58 98 10/28/16 22:00 61 10/28/16 20:36 98 21 10/28/16 20:00 72 10/28/16 20:00 98.5 72 20 118/65 98 10/28/16 18:00 67 10/28/16 16:00 98.3 74 18 110/55 100 10/28/16 16:00 69 10/28/16 14:00 56 10/28/16 12:00 98.0 63 16 130/72 100 10/28/16 12:00 63 10/28/16 10:00 60 I/O 10/28/16 10/28/16 10/28/16 10/29/16 10/29/16 10/29/16 07:00 15:00 23:00 07:00 15:00 23:00 Intake Total 1080 ml 120 ml 80 ml Output Total 1800 ml Balance -720 ml 120 ml 80 ml Intake Oral 480 ml 120 ml 80 ml IV Total 600 ml 0 ml 0 ml Output Urine Total 1800 ml # Voids 2 1 # Bowel Movements 0 Physical Exam GENERAL: Well-nourished, well-developed patient. SKIN: Warm and dry. HEAD: Normocephalic. EYES: No scleral icterus. No injection or drainage. NECK: Supple, trachea midline. No JVD or lymphadenopathy. CARDIOVASCULAR: Regular rate and rhythm without murmurs, gallops, or rubs. RESPIRATORY: Breath sounds equal bilaterally. No accessory muscle use. GASTROINTESTINAL: Abdomen soft, non-tender, nondistended. EXTREMITIES: No cyanosis, or edema. NEUROLOGICAL: Awake, alert, and oriented x 3. Non-focal. Laboratory Laboratory Tests Test 10/28/16 10/29/16 20:33 03:13 Lab Scanned Report Lab Reports - Other [id number] White Blood Count 5.6 TH/MM3 Red Blood Count 4.11 MIL/MM3 Hemoglobin 13.0 GM/DL Hematocrit 39.1 % Mean Corpuscular Volume 95.0 FL Mean Corpuscular Hemoglobin 31.7 PG Mean Corpuscular Hemoglobin 33.3 % Concent Red Cell Distribution Width 14.2 % Platelet Count 129 TH/MM3 Mean Platelet Volume 9.2 FL Neutrophils (%) (Auto) 52.2 % Lymphocytes (%) (Auto) 36.8 % Monocytes (%) (Auto) 7.5 % Eosinophils (%) (Auto) 2.7 % Basophils (%) (Auto) 0.8 % Neutrophils # (Auto) 2.9 TH/MM3 Lymphocytes # (Auto) 2.1 TH/MM3 Monocytes # (Auto) 0.4 TH/MM3 Eosinophils # (Auto) 0.2 TH/MM3 Basophils # (Auto) 0.0 TH/MM3 CBC Comment DIFF FINAL Differential Comment Sodium Level 139 MEQ/L Potassium Level 4.6 MEQ/L Chloride Level 112 MEQ/L Carbon Dioxide Level 19.1 MEQ/L Anion Gap 8 MEQ/L Blood Urea Nitrogen 18 MG/DL Creatinine 0.86 MG/DL Estimat Glomerular Filtration 71 ML/MIN Rate Random Glucose 90 MG/DL Calcium Level 8.5 MG/DL Assessment and Plan Problem List: (1) STEMI (ST elevation myocardial infarction) Assessment and Plan: s/p PCI/RUBA Chest pain free Ambulating without difficulty Preserved LVEF on Echo Recs: Con DAPT with ASA and Plavix Cont ACEi and statins Start Lopressor 12.5mg PO BID Ok to transfer to floor Smoking cessation Encourage ambulation and incentive spirometry (2) Chest pain Problem Qualifiers (1) STEMI (ST elevation myocardial infarction): Qualified Code: I21.3 - ST elevation myocardial infarction (STEMI), unspecified artery Nima Bashir MD Oct 29, 2016 09:19
[2016-10-29] MEDS ORDERED: PLAV75TA29 PO (09:46)
[2016-10-29] MEDS ORDERED: RAMI2.5C PO (09:46)
[2016-10-29] MEDS ORDERED: LIPI10TA PO (09:46)
[2016-10-29] MEDS ORDERED: Aspirin Chew PO (09:46)
[2016-10-29] MEDS ORDERED: METO25TA3 PO (09:46)
--- NOTE | 2016-10-29 09:48 | HHI.DS ---
Discharge Summary Admission Date Oct 28, 2016 at 04:59 Discharge Date: Oct 29, 2016 Admitting Diagnosis STEMI (1) STEMI (ST elevation myocardial infarction) ICD Code: I21.3 Diagnosis: Principal Procedures cardiac catheterization with stent placement. Brief History - From Admission This is a 46-year-old female with no past medical history but long-term tobacco use who presented with chest pain. Patient in the emergency department was found to have a inferior STEMI so a STEMI alert protocol was follow. Patient had a cardiac catheterization and which she had OMS stented. [facility] consulted for medical management and transfer of care in AM. Patient has no complaints. She stated that she is doing well. Denies any chest pain, SOB, palpitation. She stated that she is not able to move until 2 PM due to recent cardiac catheterization. Multiple family members at the bedside. Patient smokes about half pack per day for the past 20 years. Her father had cardiac bypass at age of 62. Also multiple family members have cardiovascular disease and diabetes. CBC/BMP: 10/29/16 0313 10/29/16 0313 Significant Findings Laboratory Tests Test 10/28/16 10/29/16 03:55 03:13 Red Blood Count 2.79 MIL/MM3 (4.00-5.30) Hemoglobin 8.8 GM/DL (11.6-15.3) Bedside Hemoglobin 11.2 G/DL (12.0-17.0) Hematocrit 26.5 % (35.0-46.0) Bedside Hematocrit 33.0 % (38.0-51.0) Platelet Count 141 TH/MM3 129 TH/MM3 (150-450) (150-450) Lymphocytes (%) (Auto) 46.6 % (9.0-44.0) Monocytes (%) (Auto) 8.6 % (0.0-8.0) Prothrombin Time 12.0 SEC (9.8-11.6) Activated Partial 24.0 SEC Thromboplast Time (24.3-30.1) Bedside Potassium 2.8 MMOL/L (3.5-4.9) Bedside Glucose 114 MG/DL (60-95) Calcium Level 7.1 MG/DL (8.5-10.1) Troponin I LESS THAN 0.02 NG/ML (0.02-0.05) Chloride Level 112 MEQ/L (98-107) Carbon Dioxide Level 19.1 MEQ/L (21.0-32.0) Estimat Glomerular Filtration 71 ML/MIN (>89) Rate Imaging Last Impressions Aorta CTA 10/28/16 0409 Signed Impressions: Service Date/Time: Friday, October 28, 2016 04:09 - CONCLUSION: 1. Mild atherosclerotic disease. 2. No evidence for aortic dissection. 3. Right adrenal nodule likely an adenoma. Usman Yoo MD Chest X-Ray 10/28/16 0354 Signed Impressions: Service Date/Time: Friday, October 28, 2016 04:09 - CONCLUSION: No acute disease. Usman Yoo MD PE at Discharge GENERAL: in NAD SKIN: Warm and dry. dressing place in right groin. HEAD: Normocephalic. EYES: No scleral icterus. No injection or drainage. NECK: Supple, trachea midline. No JVD or lymphadenopathy. CARDIOVASCULAR: Regular rate and rhythm without murmurs, gallops, or rubs. RESPIRATORY: Breath sounds equal bilaterally. No accessory muscle use. GASTROINTESTINAL: Abdomen soft, non-tender, nondistended. MUSCULOSKELETAL: No cyanosis, or edema. BACK: Nontender without obvious deformity. No CVA tenderness. Pt update on day of discharge f/u for STEMI patient denied any CP, SOB, palpitations, lightheadedness/dizziness. patient asking to go home. no acute events since cardiac catheterization. d/w Hospital Course Inferior STEMI -STEMI alert implemented. -Status post cardiac catheterization with stent placement and OMS. -since stent was place chest pain free. Continue with ramipril, metoprolol, aspirin, Plavix, and atorvastatin. Tobacco dependence -Smoking cessation. Pt Condition on Discharge: Good Discharge Disposition: Discharge Home Discharge Time: <= 30 minutes Discharge Instructions DIET: Follow Instructions for: Heart Healthy Diet Activities you can perform: See Additionl Instruction Other Activity Instructions: as directed by Field Marketing Lead Follow up Referrals: Cardiology - 1 Week PCP Follow-up - 1 Week New Medications: Atorvastatin (Lipitor) 10 Mg Tab 10 MG PO HS CAD #30 Ref 0 TAB Clopidogrel (Plavix) 75 Mg Tab 75 MG PO DAILY CAD #30 Ref 0 TAB Metoprolol Tartrate (Metoprolol Tartrate) 25 Mg Tab 12.5 MG PO Q12HR CAD #60 Ref 0 TAB Ramipril (Ramipril) 2.5 Mg Cap 2.5 MG PO DAILY CAD #30 Ref 0 CAP ([Aspirin Chew]) 81 MG CHEW 81 MG PO DAILY #30 Ref 0 TAB.CHEW Danielle Larson MD Oct 29, 2016 09:48
--- NOTE | 2016-10-29 09:48 | HHI.DCPOC ---
Discharge Care Plan Diagnosis: (1) STEMI (ST elevation myocardial infarction) Goals to Promote Your Health * To prevent worsening of your condition and complications * To maintain your health at the optimal level Directions to Meet Your Goals Take your medications as prescribed Follow your dietary instruction Follow activity as directed Keep your appointments as scheduled Take your immunizations and boosters as scheduled If your symptoms worsen call your PCP, if no PCP go to Urgent Care Center or Emergency Room Smoking is Dangerous to Your Health. Avoid second hand smoke Call the 24-hour hour crisis hotline for domestic abuse at Danielle Larson MD Oct 29, 2016 09:48
[2016-10-29] MEDS ORDERED: METOPROLOL TARTRATE 25 MG TAB PO SCH (10:00)
[2016-10-29] MEDS ORDERED: PILL SPLITTER OTHER PRN (10:00)
== END 2016-10-29 11:15 | disposition home or self-care (01) | DRG 247 ==
LOC: NEPE 03:42 → NEDA 04:59 → HIMW 06:10
PROVIDERS: ADMIT Family Medicine; ATTEND Family Medicine
PROC: 027034Z Dilation of Coronary Artery, One Artery with Drug-eluting Intraluminal Device, Percutaneous Approach (ICD-10-PCS; principal; 2016-10-28)
PROC: 4A023N7 Measurement of Cardiac Sampling and Pressure, Left Heart, Percutaneous Approach (ICD-10-PCS; 2016-10-28)
PROC: B2111ZZ Fluoroscopy of Multiple Coronary Arteries using Low Osmolar Contrast (ICD-10-PCS; 2016-10-28)
PROC: B2151ZZ Fluoroscopy of Left Heart using Low Osmolar Contrast (ICD-10-PCS; 2016-10-28)
PROC: B41F1ZZ Fluoroscopy of Right Lower Extremity Arteries using Low Osmolar Contrast (ICD-10-PCS; 2016-10-28)
DX: I21.19 ST elevation (STEMI) myocardial infarction involving other coronary artery of inferior wall (principal); R00.1 Bradycardia, unspecified; I25.10 Atherosclerotic heart disease of native coronary artery without angina pectoris; G40.909 Epilepsy, unspecified, not intractable, without status epilepticus; F17.210 Nicotine dependence, cigarettes, uncomplicated; E66.9 Obesity, unspecified; Z68.26 Body mass index [BMI] 26.0-26.9, adult; Z82.49 Family history of ischemic heart disease and other diseases of the circulatory system; Z83.3 Family history of diabetes mellitus
CPT/HCPCS: 71010; 71275; 74174; 80048; 82310; 82435; 82550; 82565; 82947; 83735; 83880; 84132; 84295; 84484; 84520; 84703; 85002; 85025; 85610; 85730; 87641; 92941; 93005; 93306; 93458; C1725; C1760; C1769; C1874; C1887; C1893; G0269; J1644; J2250; J3010; J3480; Q9967

== ENCOUNTER 2016-11-01 | Inpatient (IN) | payer BC, MEDICARE ==
[~2016-11-01] VITALS: Ht 167.6 cm; Wt 70.9 kg
[2016-11-01] VITALS (12 sets, daily range): BP systolic 86–119; BP diastolic 57–72; PULSE 49–62; RESP 16–18; TEMP 97.9; O2SAT 96–99
[~2016-11-01] MED LIST: Aspirin Chew PO; LIPI10TA PO; METO25TA3 PO; PLAV75TA29 PO; RAMI2.5C PO
[2016-11-01] MEDS ORDERED: SODIUM CHLORID 0.9% 500 ML INJ 500 ML IV ONE ×2 (00:15→01:00)
[2016-11-01] MEDS ORDERED: SODIUM CHLOR 0.9% 1000 ML INJ 1,000 ML IV SCH (00:15)
[2016-11-01] MEDS ORDERED: SODIUM CHLORIDE 0.9% FLUSH 10 ML FLUSH IVF PRN ×2 (00:15→01:30)
--- NOTE | 2016-11-01 00:29 | PD ---
HPI Chief Complaint: Chest Pain Time Seen by Provider: 00:13 Travel History International Travel<30 days: No Contact w/Intl Traveler<30days: No Traveled to known affect area: No History of Present Illness HPI 46-year-old female presents to the emergency department by private transportation for evaluation of nonradiating retrosternal chest pressure that she describes as a crushing 6/10 in intensity. Patient denies any shortness breath sweats nausea vomiting or referred pain. Patient was just hospitalized with a ST elevation CT and underwent cardiac catheterization by Dr. Beebe which identified that she had significant occlusion of the obtuse marginal3 with a left dominant system heparin was administered underwent balloon dilatation and deployment of a drug-eluting stent according to the angiography report left main short no significant disease left anterior descending transit apical vessel minimal luminal irregularities throughout distal 30% lesion diagonals are patent without obstruction disease left circumflex artery is dominant vessel giving off blood flow to the PDA obtuse marginal one is patent with minimal luminal irregularities obtuse marginal to 70% lesion proximally and it was a long lesion and then obtuse marginal 3 was 100% occluded right coronary vessel was nondominant vessels and a small with minimal luminal irregularities less than 40% proximally patient was placed on dual antiplatelet therapy with aspirin and Plavix started on JEFF inhibitor and statin no beta blockers due to bradycardia and encouraged to discontinue smoking. Patient with family history of CAD father having cardiac bypass at age 62 along with other family members with CAD and diabetes. Patient also underwent CT of the aorta mild atherosclerotic disease no evidence for aortic dissection right adrenal nodule likely an adenoma patient was discharged with prescription for atorvastatin Plavix metoprolol ramipril and aspirin daily. Patient has done well since being discharged on 10/29/16 until this evening 1 hour prior to arrival to the emergency department. Patient did take 2 sublingual nitroglycerin prior to arrival to the emergency department as well as [phone] mg aspirin. [facility] Past Medical History Narrative Medical CT, cath with angioplasty and drug eluting stent, tobaccoism; cardiac cath; nursing notes reviewed Immunizations Current: Yes Seizures: Yes Past Surgical History Cardiac Surgery: Yes (CARDIAC CATH) Social History Alcohol Use: Yes Tobacco Use: Yes Substance Use: No Allergies-Medications (Allergen,Severity, Reaction): Coded Allergies: No Known Allergies (Unverified , 11/01/16) Reported Meds & Prescriptions Reported Meds & Active Scripts Active Ramipril 2.5 Mg Cap 2.5 Mg PO DAILY Metoprolol Tartrate 25 Mg Tab 12.5 Mg PO Q12HR Plavix (Clopidogrel Bisulfate) 75 Mg Tab 75 Mg PO DAILY Lipitor (Atorvastatin Calcium) 10 Mg Tab 10 Mg PO HS [Aspirin Chew] 81 MG Chew 81 Mg PO DAILY Reported Nitrostat SL (Nitroglycerin) 0.4 Mg Subl 0.4 Mg SL DIRECTED PRN 1 tablet under the tongue as needed for chest pain. Repeat every 5 minutes for a total of 3 DOSES or call 911 if NO relief. Narrative Medication SL NTG Review of Systems Except as stated in HPI: all other systems reviewed are Neg General / Constitutional: No: Fever, Chills HENT: No: Congestion Cardiovascular: Positive: Chest Pain or Discomfort Respiratory: No: Shortness of Breath Gastrointestinal: No: Nausea, Vomiting, Abdominal Pain Genitourinary: No: Flank Pain Musculoskeletal: No: Myalgias, Limited ROM Skin: No Rash Neurologic: No: Weakness Psychiatric: No: Anxiety Hematologic/Lymphatic: No: Lymph Node Enlargement Physical Exam Narrative GENERAL: Well-developed well-nourished female in no acute distress no respiratory distress complaining of 6/10 chest pain SKIN: Warm and dry. HEAD: Normocephalic. EYES: No scleral icterus. No injection or drainage. NECK: Supple, trachea midline. No JVD or lymphadenopathy. CARDIOVASCULAR: Regular rate and rhythm without murmurs, gallops, or rubs. RESPIRATORY: Breath sounds equal bilaterally. No accessory muscle use. GASTROINTESTINAL: Abdomen soft, non-tender, nondistended. MUSCULOSKELETAL: No cyanosis, or edema. Bilateral radial and dorsalis pedis pulses 2+ to palpation. BACK: Nontender without obvious deformity. No CVA tenderness. Data Data Last Documented VS Vital Signs Date Time Temp Pulse Resp B/P Pulse Ox O2 Delivery O2 Flow Rate FiO2 11/01/16 01:18 50 18 96/60 98 Room Air 11/01/16 00:12 97.9 Orders Electrocardiogram (11/01/16 00:13) Basic Metabolic Panel (Bmp) (11/01/16 00:13) Ckmb (Isoenzyme) Profile (11/01/16 00:13) Complete Blood Count With Diff (11/01/16 00:13) Magnesium (Mg) (11/01/16 00:13) Prothrombin Time / Inr (Pt) (11/01/16 00:13) Act Partial Throm Time (Ptt) (11/01/16 00:13) Troponin I (11/01/16 00:13) Chest, Single Ap (11/01/16 00:13) Ecg Monitoring (11/01/16 00:13) Bilateral Bp Monitoring (11/01/16 00:13) Iv Access Insert/Monitor (11/01/16 00:13) Oximetry (11/01/16 00:13) Oxygen Administration (11/01/16 00:13) Sodium Chloride 0.9% Flush (Ns Flush) (11/01/16 00:15) Sodium Chlorid 0.9% 500 Ml Inj (Ns 500 M (11/01/16 00:15) Sodium Chlor 0.9% 1000 Ml Inj (Ns 1000 M (11/01/16 00:15) Sodium Chlorid 0.9% 500 Ml Inj (Ns 500 M (11/01/16 01:00) Heparin Infusion LYNNETTE.Q1H (11/01/16 00:57) Heparin Inj (Heparin Inj) (11/01/16 01:00) Heparin-D5w Inj (Heparin-D5w Inj) (11/01/16 01:00) Cbc No Diff, Includes Plts (11/04/16 06:00) Act Partial Throm Time (Ptt) (11/01/16 07:57) Occult Blood (Hemoccult) Stool (11/01/16 00:57) Sodium Chlor 0.9% 1000 Ml Inj (Ns 1000 M (11/01/16 01:30) Admit Order (Ed Use Only) (11/01/16 ) ^ Saline Lock (11/01/16 01:30) Resp Oxygen Edison C Titrat 1-4 L (11/01/16 ) ^ Notify Dr: Other (11/01/16 01:30) Sodium Chloride 0.9% Flush (Ns Flush) (11/01/16 09:00) Sodium Chloride 0.9% Flush (Ns Flush) (11/01/16 01:30) Consult Cardiology (11/01/16 01:30) Labs Laboratory Tests Test 11/01/16 00:17 White Blood Count 6.4 TH/MM3 Red Blood Count 3.98 MIL/MM3 Hemoglobin 12.4 GM/DL Hematocrit 37.3 % Mean Corpuscular Volume 93.7 FL Mean Corpuscular Hemoglobin 31.1 PG Mean Corpuscular Hemoglobin 33.2 % Concent Red Cell Distribution Width 13.4 % Platelet Count 108 TH/MM3 Mean Platelet Volume 9.0 FL Neutrophils (%) (Auto) 50.0 % Lymphocytes (%) (Auto) 34.1 % Monocytes (%) (Auto) 7.0 % Eosinophils (%) (Auto) 4.0 % Basophils (%) (Auto) 4.9 % Neutrophils # (Auto) 3.2 TH/MM3 Lymphocytes # (Auto) 2.2 TH/MM3 Monocytes # (Auto) 0.4 TH/MM3 Eosinophils # (Auto) 0.3 TH/MM3 Basophils # (Auto) 0.3 TH/MM3 CBC Comment DIFF FINAL Differential Comment Prothrombin Time 12.3 SEC Prothromb Time International 1.1 RATIO Ratio Activated Partial 21.4 SEC Thromboplast Time Sodium Level 139 MEQ/L Potassium Level 4.2 MEQ/L Chloride Level 105 MEQ/L Carbon Dioxide Level 26.1 MEQ/L Anion Gap 8 MEQ/L Blood Urea Nitrogen 20 MG/DL Creatinine 0.92 MG/DL Estimat Glomerular Filtration 65 ML/MIN Rate Random Glucose 103 MG/DL Calcium Level 9.0 MG/DL Magnesium Level 2.3 MG/DL Total Creatine Kinase 55 U/L Troponin I 0.29 NG/ML [facility] Medical Decision Making Medical Screen Exam Complete: Yes Emergency Medical Condition: Yes Medical Record Reviewed: Yes Interpretation(s) EKG sinus bradycardia rate 54 inverted T waves in inferiorly in lead 3 with Q wave noted in 3 and aVF no acute ST elevation Differential Diagnosis Chest pain, ACS, myocardial infarction, aortic dissection Narrative Course Patient presents with borderline hypotension systolic pressure is 10 1 mmHg with heart rate of 54 EKG shows no acute ST elevation CT changes or injury changes that show evidence of previous inferior CT with Q-wave in lead 3 and smaller Q-wave in aVF. Patient is undertaken 3, 81 mg aspirin just prior to arrival to the emergency department and to sublingual nitroglycerin 0.4 mg just prior to arrival to the emergency department. Patient will be administered 500 cc bolus of normal saline maintenance fluids of 125 cc per hour and Zofran 4 mg IV and morphine sulfate 2 mg IV along with supplemental oxygen. We'll attempt additional sublingual administered glycerin once blood pressure and more acceptable range. Chest x-ray pending. No pleuritic component to chest pain. @ 2:35 chest pain free Critical Care Narrative Aggregate critical care time was 35 minutes. Time to perform other separately billable procedures was not included in the critical care time. My time did not include minutes spent treating any other patients simultaneously or on activities that did not directly contribute to the patient's treatment. The services I provided to this patient were to treat and/or prevent clinically significant deterioration that could result in: Myocardial infarction, cardiogenic shock, arrhythmia, I provided critical care services requiring my management, as noted below: Chart data review, documentation time, medication orders and management, vital sign assessments/reviewing monitor data, ordering and reviewing lab tests, ordering and interpreting/reviewing x-rays and diagnostic studies, care of the patient and discussion of the patient with the admitting physicians. Physician Communication Physician Communication discussed with Dr Rahman --aware of hx ekg findings troponin pendnig -- transfer to [facility] to [facility] service to [facility] ---patient has received aspirin, nitroglycerin, and as not going to cath now will start heparin with bolus and receiving iv fluid bolus for hypotension; discussed with Dr Montero will admit to her service to [facility] Diagnosis Primary Impression: Acute coronary syndrome Additional Impressions: Chest pain Qualified Code: I20.0 - Unstable angina pectoris Hypotension Qualified Code: I95.9 - Hypotension, unspecified hypotension type Admitting Information Admitting Physician Requests: Admit Alka Vargas MD Nov 01, 2016 00:29
[2016-11-01 00:37] LABS: AUTOMATED NEUTROPHIL # 3.2 TH/MM3 (1.8-7.7); BASOPHIL # 0.3 TH/MM3 (0-0.2); BASOPHIL % 4.9 % (0.0-2.0); EOSINOPHIL # 0.3 TH/MM3 (0-0.4); HEMATOCRIT 37.3 % (35.0-46.0); HEMO FLAGS DIFF FINAL; LYMPH % 34.1 % (9.0-44.0); LYMPHOCYTE # 2.2 TH/MM3 (1.0-4.8); MEAN CELL VOLUME 93.7 FL (80.0-100.0); MEAN CORPUSCULAR HEMOGLOBIN 31.1 PG (27.0-34.0); MEAN CORPUSCULAR HGB CONC 33.2 % (32.0-36.0); PLATELET COUNT 108 TH/MM3 (150-450); RED BLOOD COUNT 3.98 MIL/MM3 (4.00-5.30); RED CELL DISTRIBUTION WIDTH 13.4 % (11.6-17.2); WHITE BLOOD COUNT 6.4 TH/MM3 (4.0-11.0)
[2016-11-01] MEDS ORDERED: NITR0.4S SL (00:39)
[2016-11-01 00:43] LABS: POTASSIUM 4.2 MEQ/L (3.5-5.1)
[2016-11-01 00:46] LABS: BICARBONATE 26.1 MEQ/L (21.0-32.0); MAGNESIUM 2.3 MG/DL (1.5-2.5)
[2016-11-01 00:50] LABS: APTT (PATIENT) 21.4 SEC (24.3-30.1); INTERNATIONAL NORMALIZED RATIO 1.1 RATIO; PROTHROMBIN TIME - PATIENT 12.3 SEC (9.8-11.6)
--- NOTE | 2016-11-01 00:56 | RADHPO ---
EXAM DATE/TIME: 11/01/2016 00:37 [place] COMPARISON: CHEST SINGLE AP, October 28, 2016, 4:09. INDICATIONS : Chest pain. MEDICAL HISTORY : None. SURGICAL HISTORY : None. ENCOUNTER: Initial ACUITY: 1 day PAIN SCORE: 6/10 LOCATION: Bilateral chest FINDINGS: A single view of the chest demonstrates the lungs to be symmetrically aerated without evidence of mas s, infiltrate or effusion. The cardiomediastinal contours are unremarkable. Osseous structures are intact. CONCLUSION: No acute disease. Farhad Loomis Jr., MD on November 01, 2016 at 0:54 Board Certified Radiologist. This report was verified electronically.
[2016-11-01] MEDS ORDERED: HEPARIN SODIUM - IV 10,000 UNITS/10 ML VIAL IV ONE (01:00)
[2016-11-01] MEDS ORDERED: HEPARIN-D5W INJ 250 ML IV SCH (01:00)
[2016-11-01] MEDS ORDERED: SODIUM CHLOR 0.9% 1000 ML INJ 1,000 ML IV ONE (01:30)
[2016-11-01] MEDS ORDERED: NALOXONE HCL 0.4 MG/ML AMP IV PRN (06:15)
[2016-11-01] MEDS ORDERED: ONDANSETRON HCL 4 MG/2 ML VIAL IVP PRN (06:15)
[2016-11-01] MEDS ORDERED: SODIUM CHLORIDE 0.9% FLUSH 10 ML FLUSH IV FLUSH PRN (06:15)
[2016-11-01 08:24] LABS: APTT (PATIENT) 42.2 SEC (24.3-30.1)
[2016-11-01] MEDS ORDERED: SODIUM CHLORIDE 0.9% FLUSH 10 ML FLUSH IV FLUSH SCH ×2 (09:00)
[2016-11-01] MEDS ORDERED: MIDAZOLAM HCL 2 MG/2 ML VIAL ONE (13:17)
[2016-11-01] MEDS ORDERED: HEPARIN-NS/PF INJ 500 ML ONE (13:17)
[2016-11-01] MEDS ORDERED: HEPARIN SODIUM - IV 10,000 UNITS/10 ML VIAL ONE (13:52)
[2016-11-01] MEDS ORDERED: IOHEXOL 350 MG/ML 100 ML BTL (for Cath Lab) OTHER ONE (14:15)
[2016-11-01] MEDS ORDERED: CLOPIDOGREL 300 MG TAB ONE (14:16)
[2016-11-01] MEDS ORDERED: IOHEXOL 350 MG/ML 50 ML BTL (for Cath Lab) OTHER ONE (14:37)
--- NOTE | 2016-11-01 14:52 | MA ---
cc: JOVANA BASILIO DATE: 11/01/2016. PROCEDURE PERFORMED: 1. Left heart catheterization. 2. Selective right and left coronary angiography. 3. Left ventricular pressure recordings. 4. Left common femoral artery angiography. 5. Successful percutaneous coronary intervention / drug-eluting stent to the OM2. INDICATIONS FOR THE PROCEDURE: Unstable angina. DESCRIPTION OF THE PROCEDURE IN DETAIL: Consent was signed. The patient was taken to the cardiac label designer in a fasting state. The left groin was prepped and draped in the sterile fashion. Using 1% lidocaine for local anesthesia and a micropuncture kit, a 6-Brazilian sheath was inserted into the left common femoral artery. The left common femoral artery angiography was performed to confirm position of the sheath. Then selective right and left coronary angiography was performed with a JR-4 and a JL-4 diagnostic catheters. Angiography was taken in multiple views. The JR-4 diagnostic catheter was introduced into the left ventricle over a wire followed by pressure recordings and pullback. The patient's previous recent stents in the OM3/PDA region were patent with ADILIA III flow. However, the patient had a significant lesion of 70% in the OM2 which we proceeded to percutaneously intervene. For this, the left main was engaged with an EBU 3.45 guide. IV heparin was given for anticoagulation. The left circumflex vessel was wired with a BMW wire which was anchored distally in the OM2. Then the lesion was predilated with 2.5 x 12 balloon followed by insertion and deployment of a 2.75 x 20 drug-eluting stent. Final angiographic views revealed good stent apposition and expansion with ADILIA III flow and no residual post stenosis. The patient tolerated the procedure well without complications. Estimated blood loss less than 40 mL. Total contrast used 75 mL. The left groin access site was closed with a Perclose device. RESULTS: 1. Left ventricle: The left ventricular pressure was 123/13 with an left ventricular end diastolic pressure of 25. The aortic pressure was 112/60 with a mean of 80. There was no gradient on pull back from the left ventricle to the aorta. ANGIOGRAPHY: 1. The left main is short with no significant disease. 2. The left anterior descending is a transapical vessel and it has minimal luminal irregularities throughout. It has a distal 30% lesion. The diagonals are patent with nonobstructive coronary artery disease. 3. The left circumflex is a dominant vessel giving off the posterior descending artery. It has a patent stent in that obtuse marginal /PDA region with ADILIA III flow. The OM2 had a known 70% lesion in its proximal segment. This lesion measures around 18 mm and has ADILIA III flow. 4. The right coronary artery is a nondominant vessel. The artery is small and has minimal luminal irregularities throughout. It has a 40% lesion proximally. CONCLUSIONS: 1. Successful percutaneous coronary intervention/ drug-eluting stent to OM2. 2. Patent stent in the OM3/PDA. 3. Elevated left ventricular end diastolic pressure. RECOMMENDATIONS: 1. Continue dual-antiplatelet agents with aspirin and Plavix. 2. Aggressive medical management for secondary prevention of coronary artery disease. In addition to dual antiplatelet agents, she should be on a beta jatin / JEFF inhibitor and a long-acting nitrate. 3. Smoking cessation is strongly advised. 4. Encourage early ambulation and incentive spirometry. 5. Post cath care. MD MARIA G Byrne/JCC /2:28 PM /2:41 PM JOAQUIN
[2016-11-01] MEDS ORDERED: ISOSORBIDE MONONITRATE 30 MG TAB PO ONE (17:30)
--- NOTE | 2016-11-01 17:41 | HHI.HP ---
[facility] Service [facility] Primary Care Physician No Primary Care Physician Admission Diagnosis ACS Diagnoses: Travel History International Travel<30 Days: No Contact w/Intl Traveler <30 Da: No Traveled to Known Affected Are: No History of Present Illness 46-year-old female with a history of coronary artery disease, status post cardiac catheterization this past week stenting, who presents with acute onset constant, substernal, nonradiating chest pressure no exacerbating or relieving factors around 11 PM on 10/31. This continued despite nitrates in the ER. She is currently status post cardiac catheterization, and reports that chest pressure has resolved. She reports otherwise feeling well. Denies any shortness of breath, lightheadedness, dizziness, nausea, vomiting, fevers, chills. Review of Systems Performed and negative except for history of present illness and past medical history. Past Family Social History Past Medical History Coronary artery disease Hyperlipidemia Hypertension Tobacco abuse Past Surgical History Cardiac catheterization with stenting last week. Allergies: Coded Allergies: No Known Allergies (Unverified , 11/01/16) Family History Father had diabetes, bypass at age 62. Mother has diabetes and cardiovascular disease. Social History Patient quit smoking tobacco, however currently smokes E cigarettes. Denies drinking. Denies illicit drugs. Physical Exam Vital Signs Vital Signs Date Time Temp Pulse Resp B/P Pulse Ox O2 Delivery O2 Flow Rate FiO2 11/01/16 09:52 54 16 119/72 98 11/01/16 07:56 96 21 11/01/16 05:46 Room Air 21 11/01/16 05:46 53 17 100/64 96 Room Air 11/01/16 05:00 96 21 11/01/16 05:00 49 17 109/64 97 Room Air 11/01/16 04:06 51 16 105/71 98 Room Air 11/01/16 03:40 50 18 97/62 97 Room Air 11/01/16 03:00 62 17 97/63 97 Room Air 11/01/16 02:41 Room Air 11/01/16 02:00 52 16 91/61 98 Room Air 11/01/16 01:18 50 18 96/60 98 Room Air 11/01/16 00:56 55 17 86/57 98 Room Air 86/61 11/01/16 00:12 97.9 99 11/01/16 00:10 Room Air 11/01/16 00:10 Room Air 11/01/16 00:10 99 Room Air Physical Exam GENERAL: This is a well-nourished, well-developed patient, in no apparent distress. Alert and oriented 3 SKIN: No rashes, ecchymoses or lesions. Cool and dry. HEAD: Atraumatic. Normocephalic. No temporal or scalp tenderness. EYES: Pupils equal round and reactive. Extraocular motions intact. No scleral icterus. No injection or drainage. ENT: Nose without bleeding, purulent drainage or septal hematoma. Throat without erythema, tonsillar hypertrophy or exudate. Uvula midline. Airway patent. NECK: Trachea midline. No JVD. Supple, nontender, no meningeal signs. CARDIOVASCULAR: Regular rate and rhythm without murmurs, gallops, or rubs. Peripheral perfusion intact. RESPIRATORY: Clear to auscultation. Breath sounds equal bilaterally. No wheezes , rales, or rhonchi. GASTROINTESTINAL: Abdomen soft, non-tender, nondistended. No hepato-splenomegaly , or palpable masses. No guarding. MUSCULOSKELETAL: Extremities without clubbing, cyanosis, or edema. No joint tenderness, effusion, or edema noted. No calf tenderness. Negative Homans sign bilaterally. NEUROLOGICAL: Awake and alert. Cranial nerves II through XII intact. Motor and sensory grossly within normal limits. Five out of 5 muscle strength in all muscle groups. Normal speech. Laboratory Laboratory Tests Test 11/01/16 11/01/16 11/01/16 00:17 06:45 08:07 White Blood Count 6.4 Red Blood Count 3.98 Hemoglobin 12.4 Hematocrit 37.3 Mean Corpuscular Volume 93.7 Mean Corpuscular Hemoglobin 31.1 Mean Corpuscular Hemoglobin 33.2 Concent Red Cell Distribution Width 13.4 Platelet Count 108 Mean Platelet Volume 9.0 Neutrophils (%) (Auto) 50.0 Lymphocytes (%) (Auto) 34.1 Monocytes (%) (Auto) 7.0 Eosinophils (%) (Auto) 4.0 Basophils (%) (Auto) 4.9 Neutrophils # (Auto) 3.2 Lymphocytes # (Auto) 2.2 Monocytes # (Auto) 0.4 Eosinophils # (Auto) 0.3 Basophils # (Auto) 0.3 CBC Comment DIFF FINAL Differential Comment Prothrombin Time 12.3 Prothromb Time International 1.1 Ratio Activated Partial 21.4 42.2 Thromboplast Time Sodium Level 139 Potassium Level 4.2 Chloride Level 105 Carbon Dioxide Level 26.1 Anion Gap 8 Blood Urea Nitrogen 20 Creatinine 0.92 Estimat Glomerular Filtration 65 Rate Random Glucose 103 Calcium Level 9.0 Magnesium Level 2.3 Total Creatine Kinase 55 37 Troponin I 0.29 0.27 Result Diagram: 11/01/161611/01/1616 Assessment and Plan Assessment and Plan //Acute chest pain. //Hyperlipidemia. //Hypertension Coronary artery disease, with history of stenting this past week on patent. -Status post cardiac catheterization today with stenting. -Appreciate cardiology assistance. Can discharge patient has been cleared by cardiology. - Advised discontinue smoking. Continue Plavix, aspirin on beta jatin, aspirin, long-acting nitrate added as per cardiology's recommendations. //Chronic smoking. -Patient says she is stop smoking, still using vaping device. -Recommend discontinue e-cigarette, as this still leads to changes in blood pressure which can attribute to atherosclerosis //Thrombocytopenia. Mild. Chronic. No signs of bleeding. Follow-up with primary care. //Tobacco abuse. Counseling provided. Cessation strongly advised. //Prophylaxis. As per cardiology Discussed Condition With Patient, nurse Physician Certification 2 Midnight Certification Type: Admission for Inpatient Services Order for Inpatient Services The services are ordered in accordance with Medicare regulations or non- Medicare payer requirements, as applicable. In the case of services not specified as inpatient-only, they are appropriately provided as inpatient services in accordance with the 2-midnight benchmark. Estimated LOS (days): 2 days is the estimated time the patient will need to remain in the hospital, assuming treatment plan goals are met and no additional complications. Post-Hospital Plan: Not yet determined Mitchel Dahl MD Nov 01, 2016 17:41
[2016-11-01] MEDS ORDERED: ISOS30TA3 PO (17:49)
--- NOTE | 2016-11-01 20:10 | MB ---
cc: JOVANA BASILIO MD DATE OF CONSULTATION 11/01/16 1969 REASON FOR CONSULTATION Chest pain. HISTORY OF PRESENT ILLNESS 46-year-old female with past medical history significant for recent ST elevation KS with successful PCI to OM 3/PDA that presented to the hospital with non-radiating right upper sternal chest pressure that was relieved by two sublingual nitro. The patient reports she has been compliant with medications, although she is still smoking. On recent left heart catheterization, she had a significant lesion of OM2, however, in the setting of the STEMI the culprit lesion was fixed per guidelines and nothing was done with this OM2 branch. Thus , cardiology has been consulted for further management and evaluation. REVIEW OF SYSTEMS Negative except for what is mentioned in the HPI. PAST MEDICAL HISTORY 1. Coronary artery disease 2. Status post PCI 3. Hypertension, 4. Hyperlipidemia, 5. Smoker. PAST SURGICAL HISTORY Cardiac cath. SOCIAL HISTORY She drinks alcohol socially. She denies any illicit drug use and she is an active smoker. ALLERGIES NO KNOWN DRUG ALLERGIES MEDICATIONS Home medications 1. Ramipril 2.5 mg p.o. daily, 2. Metoprolol 12.5 mg p.o. b.i.d., 3. Plavix 75 mg p.o. daily, 4. Lipitor 10 mg p.o. q.h.s. 5. Aspirin 81 mg p.o. daily 6. Nitroglycerin sublingual 0.4 mg p.r.n. for chest pain. PHYSICAL EXAMINATION VITAL SIGNS: Temperature 97.9, respiratory rate 16, heart rate 54, blood pressure 101 Old 90/64, O2 sats 96% RA GENERAL: She is awake, alert, oriented x3 in no acute distress. NECK: No JVD or carotid bruits. HEART: Regular rate and rhythm. No murmurs, rubs or gallops. LUNGS: Clear to auscultation bilaterally. No wheezes, rhonchi or rales. ABDOMEN: Obese. Positive bowel sounds, soft, nontender, nondistended. EXTREMITIES: No cyanosis or edema. Pulses throughout. LABORATORY DATA CBC - Hemoglobin 12, hematocrit 37, platelet count 108, INR 1.1. Chemistries - Sodium 139, potassium 4.9, BUN 20, creatinine 0.92, First troponin is 0.29 and 0.27 which are trending down most likely from the recent STEMI. No CK-MB was done IMAGING STUDIES Chest x-ray shows no acute cardiopulmonary process. CARDIOLOGY STUDIES EKG - normal sinus rhythm with nonspecific ST changes. ASSESSMENT/PLAN 46-year-old female with known coronary artery disease status post recent stenting and OM2 lesion that was not stented that presents to the hospital with symptoms concerning for angina. She reports being compliant with medication including dual antiplatelet agent (aspirin and Plavix) as well as CAD medications. Still smoking, however, she is trying to quit. Given the patient' s ongoing symptoms, known coronary history of coronary artery disease and recent stent, I think it would be reasonable to take her to the cardiac pit laborer to further assess either occlusion of the previously placed stent and/or progression of OM2 disease. Risks, benefits of left heart cath/intervention including but not limited to bleeding, acute kidney injury, infection, neurovascular trauma, stroke, KS, emergent bypass surgery and have been explained to the patient. The patient understands risks and is willing to proceed. RECOMMENDATIONS 1. Keep n.p.o. for left heart cath today. 2. Continue aspirin, Plavix, beta-blockers, JEFF inhibitors, statins and heparin drip. Thank you for the opportunity to take part in the care of this patient. Further therapy to be determined. MD MARIA G Byrne/ /4:23 PM /7:53 PM JOAQUIN
[2016-11-02] MEDS ORDERED: ISOSORBIDE MONONITRATE 30 MG TAB PO SCH (07:00)
--- NOTE | 2016-11-02 11:02 | EKG ---
Date Performed: 11/01/2016 Time Performed: 05:12:46 PTAGE: 46 years EKG: Sinus bradycardia Inferior T wave changes are nonspecific Borderline ECG NO PREVIOUS TRACING DOCTOR: Love Brown Interpretating Date/Time 11/02/2016 11:00:00
--- NOTE | 2016-11-02 11:08 | EKG ---
Date Performed: 10/31/2016 Time Performed: 23:08:34 PTAGE: 46 years EKG: Sinus bradycardia Inferior T wave changes are nonspecific Borderline ECG PREVIOUS TRACING : 10/28/2016 03.44 DOCTOR: Love Brown Interpretating Date/Time 11/02/2016 11:04:16
== END 2016-11-01 18:55 | disposition home or self-care (01) | DRG 247 ==
LOC: PHED → PHEDA 01:33 → PHEDH 05:33 → HDIC 12:11
PROVIDERS: ADMIT Internal Medicine; ATTEND Internal Medicine
PROC: 4A023N7 Measurement of Cardiac Sampling and Pressure, Left Heart, Percutaneous Approach (ICD-10-PCS; 2016-11-01)
PROC: B2111ZZ Fluoroscopy of Multiple Coronary Arteries using Low Osmolar Contrast (ICD-10-PCS; 2016-11-01)
PROC: B2151ZZ Fluoroscopy of Left Heart using Low Osmolar Contrast (ICD-10-PCS; 2016-11-01)
PROC: B41G1ZZ Fluoroscopy of Left Lower Extremity Arteries using Low Osmolar Contrast (ICD-10-PCS; 2016-11-01)
PROC: 027034Z Dilation of Coronary Artery, One Artery with Drug-eluting Intraluminal Device, Percutaneous Approach (ICD-10-PCS; principal; 2016-11-01 12:15)
DX: I25.110 Atherosclerotic heart disease of native coronary artery with unstable angina pectoris (principal); D69.6 Thrombocytopenia, unspecified; E78.5 Hyperlipidemia, unspecified; I10 Essential (primary) hypertension; F17.290 Nicotine dependence, other tobacco product, uncomplicated; Z95.5 Presence of coronary angioplasty implant and graft; Z82.49 Family history of ischemic heart disease and other diseases of the circulatory system; I25.2 Old myocardial infarction
CPT/HCPCS: 71010; 80048; 82550; 83735; 84484; 85025; 85610; 85730; 92928; 93005; 93454; 96361; 96374; C1725; C1760; C1769; C1874; C1887; C1893; G0269; J1644; J2250; J3010; J7030; J7040; Q9967

== ENCOUNTER 2016-11-03 17:47 | Emergency (ER) | payer BC, MEDICARE ==
[~2016-11-03] VITALS: Ht 167.6 cm; Wt 68.0 kg
[~2016-11-03 17:47] MED LIST changes: +ISOS30TA3 PO; +NITR0.4S SL
[2016-11-03 17:49] VITALS: BP 104/62; PULSE 58; RESP 16; TEMP 97.7; O2SAT 97
[2016-11-03] MEDS ORDERED: FAMOTIDINE 20 MG TAB PO ONE (19:15)
[2016-11-03] MEDS ORDERED: diphenhydrAMINE HCL 25 MG CAP PO ONE (19:15)
[2016-11-03] MEDS ORDERED: predniSONE 20 MG TAB PO ONE (19:15)
--- NOTE | 2016-11-03 19:25 | PD ---
HPI Chief Complaint: Allergic/Adverse Reaction Time Seen by Provider: 19:13 Travel History International Travel<30 days: No Contact w/Intl Traveler<30days: No Traveled to known affect area: No History of Present Illness HPI Patient comes in for evaluation of a pruritic rash that began 2 days ago. Patient states rash started just prior to being discharged from the hospital after having a stent placed this past week. Patient states she was started on all new medication. Patient denies any other known allergen exposure. Patient states she was never on medication prior to having a stent placed this past week. Patient states she's tried taking Benadryl with little to no improvement of her symptoms. Patient states rash is spreading to her legs and arms. PFSH Past Medical History Hx Anticoagulant Therapy: Yes Cardiac Catheterization: Yes Cardiovascular Problems: Yes ([place];STENTS) Immunizations Current: Yes Myocardial Infarction: Yes Seizures: Yes (2017) LMP: MENOPAUSAL Menopausal: Yes Past Surgical History Cardiac Surgery: Yes (CARDIAC CATH) Coronary Stent: Yes Other Surgery: Yes Social History Alcohol Use: Yes ([facility]) Tobacco Use: Yes (1/2ppd) Substance Use: No Allergies-Medications (Allergen,Severity, Reaction): Coded Allergies: No Known Allergies (Unverified , 11/03/16) Reported Meds & Prescriptions Reported Meds & Active Scripts Active Medrol Dosepak (Methylprednisolone) 4 Mg Dspk 4 Mg PO DIRECTED Per Pharmacist direction Pepcid (Famotidine) 20 Mg Tab 20 Mg PO BID 10 Days Brilinta (Ticagrelor) 90 Mg Tab 90 Mg PO BID Isosorbide Mononitrate ER (Isosorbide Mononitrate) 30 Mg Yunior 30 Mg PO DAILY@07 Ramipril 2.5 Mg Cap 2.5 Mg PO DAILY Metoprolol Tartrate 25 Mg Tab 12.5 Mg PO Q12HR Plavix (Clopidogrel Bisulfate) 75 Mg Tab 75 Mg PO DAILY Lipitor (Atorvastatin Calcium) 10 Mg Tab 10 Mg PO HS [Aspirin Chew] 81 MG Chew 81 Mg PO DAILY Reported Nitrostat SL (Nitroglycerin) 0.4 Mg Subl 0.4 Mg SL DIRECTED PRN 1 tablet under the tongue as needed for chest pain. Repeat every 5 minutes for a total of 3 DOSES or call 911 if NO relief. Review of Systems Except as stated in HPI: all other systems reviewed are Neg Physical Exam Narrative GENERAL: Well-developed, well nourished, in no acute distress, and non-ill appearing. SKIN: Warm and dry. Blanching rash noted on abdomen, back, and arms consistent with an allergic reaction. Rash is not consistent with scabies, folliculitis, cellulitis, erythematous multiform, scalded skin syndrome, staph, or other infectious process. HEAD: Atraumatic. Normocephalic. EYES: Pupils equal and round. EOMI. No scleral icterus. No injection or drainage. ENT: No nasal bleeding or discharge. Mucous membranes pink and moist. NECK: Trachea midline. No stridor. Supple. No nuclear rigidity. RESPIRATORY: No accessory muscle use. No respiratory distress. Clear to auscultation. Breath sounds equal bilaterally. Patient speaking in full sentences without difficulty. MUSCULOSKELETAL: No obvious deformities. No clubbing. No cyanosis. No edema. Full range of motion. NEUROLOGICAL: Awake and alert. No obvious cranial nerve deficits. Motor grossly within normal limits. Normal speech. PSYCHIATRIC: Appropriate mood and affect; insight and judgment normal. Data Data Last Documented VS Vital Signs Date Time Temp Pulse Resp B/P Pulse Ox O2 Delivery O2 Flow Rate FiO2 11/03/16 17:49 97.7 58 16 104/62 97 Room Air Orders Prednisone (Deltasone) (11/03/16 19:15) Famotidine (Pepcid) (11/03/16 19:15) Diphenhydramine (Benadryl) (11/03/16 19:15) Ticagrelor (Brilinta) (11/03/16 19:30) MDM Medical Decision Making Medical Screen Exam Complete: Yes Emergency Medical Condition: Yes Differential Diagnosis Allergic reaction, scabies, cellulitis, other Narrative Course Appears allergic reaction. There is no airway involvement nor difficulty swallowing. Patient looks great. The patient is tolerating fluids. The patient looks great, the findings are minimal and due to non-progression of symptoms here the patient is safe to discharge home. The patient feels comfortable with plan and will return immediately if symptoms begin to worsen. The rash is not consistent with erythema multiforme at this time. The patient is to continue histamine 1 and 2 blockade as well as steroids. The patient was instructed to stop taking her Plavix and start taking medication prescribed today. Patient instructed to follow-up through primary care doctor and contract runner.. The patient agrees with plan. Patient in no obvious distress upon re-evaluation. Patient was asked if they wanted to speak to my attending, which the patient did not wish to do at this time. Any questions/concerns in reference to patient diagnosis/condition discussed and clarified prior to patient's discharge. Reinforced sheer importance of close follow up with patient's primary physician or primary care clinic. Instructed patient to return to ED immediately, if symptoms return/ worsen. Pt showed understanding of above instructions. Further instructions and recommendations were detailed in discharge paperwork. Pt ambulated without difficulty out of ED at discharge. Physician Communication Physician Communication [address] Altamirano contract runner on-call for Dr. Beebe, who recommends the patient stopped the Plavix started patient on Brilinta given first dose here today of 180 mg and a prescription for 90 mg twice a day starting tomorrow. Diagnosis Primary Impression: Allergic reaction caused by a drug Qualified Code: T78.40XA - Allergic reaction caused by a drug, initial encounter Patient Instructions: General Allergic Reaction (ED), General Instructions Additional Instructions: Follow-up with your primary care physician this week for reevaluation. Follow up with your contract runner as scheduled. Stop taking Plavix. Take all medication as prescribed. Use [id number] Benadryl or Claritin or Zyrtec for symptomatically relief. Follow instructions on the packaging. Return to the emergency department if symptoms get worse. Med/Other Pt SpecificInfo: Prescription(s) given Scripts Methylprednisolone Dosepak (Medrol Dosepak)4 Mg Dspk4 Mg PO DIRECTED #1 DSPK Ref 0 Per Pharmacist direction Prov:Priscilla Collins MD 11/03/16 Famotidine (Pepcid)20 Mg Tab20 Mg PO BID 10 Days Ref 0 Prov:Priscilla Collins MD 11/03/16 Ticagrelor (Brilinta)90 Mg Tab90 Mg PO BID #60 TAB Ref 0 Prov:Priscilla Collins MD 11/03/16 Disposition: 01 DISCHARGE HOME Condition: Stable William De Nov 03, 2016 19:25
[2016-11-03] MEDS ORDERED: TICAGRELOR 90 MG TAB PO ONE (19:30)
[2016-11-03] MEDS ORDERED: BRIL90TA PO (20:05)
[2016-11-03] MEDS ORDERED: FAMO1TAB37 PO (20:05)
[2016-11-03] MEDS ORDERED: MEDR4PAK PO (20:05)
== END 2016-11-03 20:18 | disposition home or self-care (01) ==
LOC: NEPB 17:47
DX: T50.905A Adverse effect of unspecified drugs, medicaments and biological substances, initial encounter (principal); I25.2 Old myocardial infarction; R56.9 Unspecified convulsions; F17.210 Nicotine dependence, cigarettes, uncomplicated; Y92.239 Unspecified place in hospital as the place of occurrence of the external cause; Z79.01 Long term (current) use of anticoagulants
CPT/HCPCS: 99282; J7512